=== PATIENT | male | born 1980 | race African-American/Black ===

== ENCOUNTER 2020-01-17 13:15 | Emergency (ER) | payer OTHER ==
[~2020-01-17] VITALS: Ht 177.8 cm; Wt 95.3 kg
[2020-01-17] MEDS ORDERED: KEFLEX500 M1 PO (14:25)
[2020-01-17] MEDS ORDERED: NORCO 5-325 TA1 EAC2 PO (14:25)
[2020-01-17 14:36] VITALS: BP 135/70
== END 2020-01-17 14:36 | disposition home or self-care (01) ==
LOC: M.ERS 13:15
DX: S61.012A Laceration without foreign body of left thumb without damage to nail, initial encounter (principal); W11.XXXA Fall on and from ladder, initial encounter; Y93.89 Activity, other specified; Y92.89 Other specified places as the place of occurrence of the external cause; Y99.8 Other external cause status